=== PATIENT | male | born 1990 | race Caucasian/White ===

== ENCOUNTER 2024-03-02 11:10 | Emergency (ER) | payer OTHER ==
[2024-03-02 12:07] LABS: CORONAVIRUS COVID-19 NAA POSITIVE (NEGATIVE)
[2024-03-02 12:21] LABS: STREP A BY PCR NOT DETECTED (NOT DETECT)
[2024-03-02] MEDS: Dexamethasone 4 MG/ML SDV IM ONE (12:51)
== END 2024-03-02 13:08 | disposition home or self-care (01) ==
LOC: FB.ED 11:10
DX: U07.1 COVID-19 (principal); Z79.899 Other long term (current) drug therapy
CPT/HCPCS: 87635; 87651; 96372; 99283; J1100; U0002